=== PATIENT | male | born 1970 | race Caucasian/White ===

== ENCOUNTER 2018-01-13 10:42 | Emergency (ER) | payer OTHER ==
[~2018-01-13] VITALS: Ht 177.8 cm; Wt 77.1 kg
[~2018-01-13 10:42] MED LIST: ABAC300; ALBIPROI INH; AMOX500 PO; ANTOXYBENA; ANTOXYBENA BOTHEARS; CEPH500 PO; CIPR500 PO; CYCL10; CYCL10 PO; DOXY100 PO; HYDACE10B PO; HYDACE5 PO; HYDACE5325 PO; HYDROXYZINE; IBUP600 PO; IBUP800; IBUP800 PO; LEVFLO500 PO; LORA1 PO; MEDICAL MARIJUANA; META800; METH5; NAPR500; OLAN10 PO; OLAN7.5 PO; OMEP40CA12 PO; ONDA8 PO; OXYACE5T PO; PENVK500 PO; POLY17UD PO; PRED20 PO; PROACE100; PROM25 PO; RANI150 PO; RXHYDACE PO; TRAM50 PO; TRAZ50
[2018-01-13] MEDS ORDERED: IBUP800 PO (11:06)
[2018-01-13] MEDS ORDERED: Prednisone50 MG PO (12:10)
[2018-01-13] MEDS ORDERED: Naprosyn500 MG PO (12:11)
== END 2018-01-13 12:14 | disposition home or self-care (01) ==
LOC: ER 10:42
DX: M54.16 Radiculopathy, lumbar region (principal); F31.9 Bipolar disorder, unspecified; K21.9 Gastro-esophageal reflux disease without esophagitis; F17.200 Nicotine dependence, unspecified, uncomplicated; Z88.8 Allergy status to other drugs, medicaments and biological substances; Z87.442 Personal history of urinary calculi
CPT/HCPCS: 96372; 99283; J1885